=== PATIENT | female | born 1965 | race Caucasian/White ===

== ENCOUNTER 2017-03-23 19:12 | Emergency (ER) | payer MEDICAID ==
[2017-03-23] MEDS ORDERED: Diphtheria,Pertussis(Acell),Tetanus Vaccine 0.5 ML SDV IM ONE (20:45)
[2017-03-23] MEDS ORDERED: Cephalexin 250 MG Cap PO ONE (20:50)
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
== END 2017-03-23 21:13 | disposition home or self-care (01) ==
LOC: JP.ED 19:12
DX: L03.012 Cellulitis of left finger (principal); Z87.891 Personal history of nicotine dependence; Z23 Encounter for immunization
CPT/HCPCS: 10060; 90471; 90715; 99283; A9270